=== PATIENT | female | born 1990 | race African-American/Black ===

== ENCOUNTER 2021-04-28 23:29 | Observation (INO) | payer OTHER, MEDICAID ==
[~2021-04-28] VITALS: Ht 160 cm; Wt 89.4 kg
[~2021-04-28 23:29] MED LIST: NO MEDS
[2021-04-29] MEDS: LACTATED RINGERS 1,000 ML IV SCH ×2 (01:16→02:16)
[2021-04-29 01:25] LABS: CLARITY URINE CLEAR (CLEAR); COLOR URINE YELLOW (YELLOW); KETONES URINE NEGATIVE (NEGATIVE); LEUKOCYTE ESTERASE URINE 2+ (NEGATIVE); NITRITE URINE NEGATIVE (NEGATIVE); OCCULT BLOOD URINE NEGATIVE (NEGATIVE); PROTEIN URINE NEGATIVE (NEGATIVE); SPECIFIC GRAVITY URINE 1.012 (1.005-1.030); UROBILINOGEN URINE 0.2 E.U./dL (0.2-1.0)
[2021-04-29] MEDS ORDERED: ACETAMINOPHEN 325MG TABLET PO ONE (03:15)
[2021-04-29] MEDS ORDERED: CEFAZOLIN 2,000 MG in DEXT 5% WATER 100 ML IV NR (03:45)
[2021-04-29] MEDS ORDERED: FERR-71 PO (04:16)
[2021-04-29] MEDS ORDERED: PREN1TAB23 PO (04:16)
== END 2021-04-29 04:50 | disposition home or self-care (01) ==
LOC: 8 EST LDRP 23:29
PROVIDERS: ADMIT Obstetrics & Gynecology; ATTEND Obstetrics & Gynecology
DX: O26.893 Other specified pregnancy related conditions, third trimester (principal); R10.9 Unspecified abdominal pain; Z3A.37 37 weeks gestation of pregnancy
CPT/HCPCS: 59025; 76805; 76818; 81003; 87086; 96361; 96365; A4215; G0378; J0690; J7060; 96360; 99281

== ENCOUNTER 2021-05-13 07:56 | Inpatient (IN) | payer OTHER, MEDICAID ==
[~2021-05-13] VITALS: Ht 160 cm; Wt 91.2 kg
[~2021-05-13 07:56] MED LIST changes: +FERR-71 PO; +PREN1TAB23 PO
[2021-05-13] MEDS ORDERED: METHYLERGONOVINE MALEATE 0.2 MG/ML IM PRN (08:30)
[2021-05-13] MEDS ORDERED: CARBOPROST TROMETHAMINE 250 MCG/ML AMPUL IM PRN (08:30)
[2021-05-13] MEDS ORDERED: DEXT 5%/LR + PITOCIN 20UNITS/L 1,000 ML IV SCH (08:30)
[2021-05-13] MEDS ORDERED: NALOXONE HCL 0.4 MG/ML 1ML VIAL IM PRN (08:30)
[2021-05-13] MEDS: LACTATED RINGERS 1,000 ML IV SCH ×2 (09:15→09:37)
[2021-05-13 09:46] LABS: BASOPHILS % 0.2 % (0.0-2.0); EOSINOPHILS % 1.2 % (0.0-5.0); HEMOGLOBIN. 11.6 g/dL (12.0-16.0); LYMPHOCYTES % 22.3 % (20.0-50.0); MEAN CORPUSCULAR HEMOGLOBIN 23.4 pg (28.0-32.0); MEAN CORPUSCULAR VOLUME 74.7 fL (81.0-99.0); MEAN PLATELET VOLUME 10.9 fl (7.4-10.4); MONOCYTES % 10.1 % (2.0-8.0); NEUTROPHILS % 66.2 % (40.0-76.0); PLATELET 167 x1000/uL (130-400); RED BLOOD CELL COUNT 4.95 mill/uL (4.2-5.4)
[2021-05-13 09:51] LABS: PROTHROMBIN TIME 10.5 sec (9.6-11.0)
[2021-05-13 09:53] LABS: CLARITY URINE CLEAR (CLEAR); COLOR URINE YELLOW (YELLOW); KETONES URINE NEGATIVE (NEGATIVE); LEUKOCYTE ESTERASE URINE 1+ (NEGATIVE); NITRITE URINE NEGATIVE (NEGATIVE); OCCULT BLOOD URINE TRACE (NEGATIVE); PH URINE 7.5 (4.5-8.0); PROTEIN URINE NEGATIVE (NEGATIVE); UROBILINOGEN URINE 0.2 E.U./dL (0.2-1.0)
[2021-05-13 10:28] LABS: *AMPHETAMINES SCREEN URINE NEGATIVE (NEGATIVE); *BARBITURATES SCREEN URINE NEGATIVE (NEGATIVE); *BENZODIAZEPINES SCREEN URINE NEGATIVE (NEGATIVE); *COCAINE SCREEN URINE NEGATIVE (NEGATIVE); CANNABINOID URINE SCREEN NEGATIVE (NEGATIVE); METHADONE URINE SCREEN NEGATIVE (NEGATIVE); PHENCYCLIDINE URINE SCREEN NEGATIVE (NEGATIVE)
[2021-05-13 10:36] LABS: OPIATES URINE SCREEN NEGATIVE (NEGATIVE)
[2021-05-13] MEDS ORDERED: MORPHINE SULFATE/PF 1MG/ML 10ML AMP ONE (11:24)
[2021-05-13] MEDS ORDERED: ONDANSETRON HCL 4MG/2ML INJ ONE (11:25)
[2021-05-13] MEDS ORDERED: EPHEDRINE SULFATE 50MG/ML VIAL ONE (11:25)
[2021-05-13] MEDS ORDERED: CEFAZOLIN SODIUM 1000MG/VIAL ONE (11:25)
[2021-05-13] MEDS ORDERED: KETOROLAC 60MG/2ML VIAL IM ONE (11:25)
[2021-05-13] MEDS ORDERED: DEXAMETHASONE 4MG/ML 1ML VIAL ONE (11:25)
[2021-05-13] MEDS ORDERED: OXYTOCIN 10 UNITS/ML 1ML ONE (11:25)
[2021-05-13] MEDS ORDERED: IBUPROFEN 400MG TABLET PO PRN (12:15)
[2021-05-13] MEDS ORDERED: DIPHENHYDRAMINE 25MG CAPSULE PO PRN (12:15)
[2021-05-13] MEDS ORDERED: LANOLIN OINT 7GM TUBE TOP PRN (12:15)
[2021-05-13] MEDS ORDERED: HEMORRHOIDAL SUPP PR PRN (12:15)
[2021-05-13] MEDS ORDERED: ONDANSETRON HCL 4MG/2ML INJ IV PRN (12:15)
[2021-05-13] MEDS ORDERED: RHO(D) IMMUNE GLOBULIN 300 MCG/SYR IM PRN (12:15)
[2021-05-13] MEDS ORDERED: BISACODYL 10MG SUPP PR PRN (12:15)
[2021-05-13] MEDS ORDERED: NALOXONE HCL 0.4 MG/ML 1ML VIAL IV PRN (12:45)
[2021-05-13 13:28] LABS: HEPATITIS B SURFACE ANTIGEN NEGATIVE
[2021-05-13] MEDS: DEXT 5%/LR + PITOCIN 20UNITS/L 1,000 ML IV SCH ×2 (14:00→21:38)
[2021-05-13 14:45] VITALS: BP 97/65
[2021-05-13 15:15] VITALS: BP 97/64
[2021-05-13] MEDS: DIPHENHYDRAMINE 50MG/ML VIAL IV PRN ×2 (15:52→22:18)
[2021-05-13 20:00] VITALS: BP 99/61
[2021-05-13] MEDS: DOCUSATE SODIUM 100MG CAPSULE PO SCH (21:38)
[2021-05-13] MEDS: MAGNESIUM/ALUMINUM HYDROXIDE/SIMETHICONE 30ML UDC PO SCH (21:38)
[2021-05-13] MEDS: SIMETHICONE 80MG TABLET CHEW PO SCH (21:39)
[2021-05-13] MEDS: IBUPROFEN 800MG TABLET PO PRN (21:39)
[2021-05-14] VITALS: BP 96/51
[2021-05-14 04:00] VITALS: BP 101/66
[2021-05-14] MEDS: IBUPROFEN 800MG TABLET PO PRN ×2 (05:16→17:13)
[2021-05-14] MEDS: DIPHENHYDRAMINE 50MG/ML VIAL IV PRN (05:16)
[2021-05-14 07:30] VITALS: BP 97/57
[2021-05-14 07:52] LABS: BASOPHILS % 0.1 % (0.0-2.0); EOSINOPHILS % 0.4 % (0.0-5.0); HEMATOCRIT. 34.7 % (36.0-48.0); LYMPHOCYTES % 17.8 % (20.0-50.0); MEAN CORPUSCULAR HEMOGLOBIN 23.8 pg (28.0-32.0); MEAN PLATELET VOLUME 11.1 fl (7.4-10.4); MONOCYTES % 9.8 % (2.0-8.0); NEUTROPHILS % 71.9 % (40.0-76.0); PLATELET 148 x1000/uL (130-400); RED BLOOD CELL COUNT 4.62 mill/uL (4.2-5.4); RED CELL DISTRIBUTION WIDTH 14.9 % (11.6-14.6)
[2021-05-14] MEDS: FERROUS SULFATE 325MG TABLET PO SCH ×3 (08:23→17:12)
[2021-05-14] MEDS: PRENATAL VIT/FE FUMARATE/FA TABLET PO SCH (08:23)
[2021-05-14] MEDS: SIMETHICONE 80MG TABLET CHEW PO SCH ×4 (08:23→21:02)
[2021-05-14] MEDS: MAGNESIUM/ALUMINUM HYDROXIDE/SIMETHICONE 30ML UDC PO SCH ×4 (08:23→21:02)
[2021-05-14 16:00] VITALS: BP 90/56
[2021-05-14 20:00] VITALS: BP 102/60
[2021-05-14] MEDS: DOCUSATE SODIUM 100MG CAPSULE PO SCH (21:02)
[2021-05-14] MEDS: HYDROCODONE/ACETAMINOPHEN 5/325MG TABLET PO PRN (21:03)
[2021-05-15] VITALS: BP 102/66
[2021-05-15 04:00] VITALS: BP 108/71
[2021-05-15] MEDS: HYDROCODONE/ACETAMINOPHEN 5/325MG TABLET PO PRN ×4 (04:55→20:53)
[2021-05-15] MEDS ORDERED: METRONIDAZOLE 500MG TABLET PO NR (07:15)
[2021-05-15] MEDS ORDERED: NALOXONE HCL 0.4MG/ML VIAL IV PRN (07:15)
[2021-05-15 08:00] VITALS: BP 103/57
[2021-05-15] MEDS: PRENATAL VIT/FE FUMARATE/FA TABLET PO SCH (09:16)
[2021-05-15] MEDS: SIMETHICONE 80MG TABLET CHEW PO SCH ×2 (09:16→20:53)
[2021-05-15] MEDS: IBUPROFEN 800MG TABLET PO PRN (09:16)
[2021-05-15] MEDS: FERROUS SULFATE 325MG TABLET PO SCH (16:29)
[2021-05-15 16:36] VITALS: BP 99/65
[2021-05-15] MEDS ORDERED: SUMATRIPTAN SUCCINATE 25MG TABLET PO PRN (18:00)
[2021-05-15 19:30] VITALS: BP 109/66
[2021-05-15] MEDS: MAGNESIUM/ALUMINUM HYDROXIDE/SIMETHICONE 30ML UDC PO SCH (20:52)
[2021-05-15] MEDS: DOCUSATE SODIUM 100MG CAPSULE PO SCH (20:53)
[2021-05-16 04:00] VITALS: BP 110/68
[2021-05-16] MEDS: IBUPROFEN 800MG TABLET PO PRN (04:24)
[2021-05-16] MEDS ORDERED: IBUP-2030 PO (06:08)
[2021-05-16] MEDS: FERROUS SULFATE 325MG TABLET PO SCH (07:30)
[2021-05-16] MEDS: MAGNESIUM/ALUMINUM HYDROXIDE/SIMETHICONE 30ML UDC PO SCH (07:30)
[2021-05-16 08:00] VITALS: BP 105/67
[2021-05-16] MEDS: SIMETHICONE 80MG TABLET CHEW PO SCH (08:00)
[2021-05-16] MEDS: PRENATAL VIT/FE FUMARATE/FA TABLET PO SCH (08:40)
== END 2021-05-16 12:15 | disposition home or self-care (01) | DRG 787 ==
LOC: 8 EST LDRP 07:56 → OBSVTOIN 07:56 → 8EST 15:02
PROVIDERS: ADMIT Obstetrics & Gynecology; ATTEND Obstetrics & Gynecology
PROC: 3E0234Z Introduction of Serum, Toxoid and Vaccine into Muscle, Percutaneous Approach (ICD-10-PCS; principal; 2021-05-13)
PROC: 10D00Z1 Extraction of Products of Conception, Low, Open Approach (ICD-10-PCS; 2021-05-13)
DX: O34.211 Maternal care for low transverse scar from previous cesarean delivery (principal); O98.32 Other infections with a predominantly sexual mode of transmission complicating childbirth; Z20.822 Contact with and (suspected) exposure to COVID-19; O26.893 Other specified pregnancy related conditions, third trimester; A59.9 Trichomoniasis, unspecified; Z3A.39 39 weeks gestation of pregnancy; Z37.0 Single live birth; Z67.41 Type O blood, Rh negative
CPT/HCPCS: 36415; 80305; 81003; 85025; 86592; 86703; 86762; 86850; 86886; 86900; 86920; 87340; 87426; 88307; 90384; 99281; J0690; J1100; J1200; J1885; J2274; J2405; J2590; J3490; J7120; Q0163; A4315; J2791